=== PATIENT | male | born 1990 ===

== ENCOUNTER 2025-01-19 09:12 | Outpatient (CLI) | payer OTHER, SELFPAY ==
[2025-01-19 10:50] LABS: Chloride* 96 mmol/L (96-114); Potassium* 4.4 mmol/L (3.6-5.1); Sodium* 138 mmol/L (135-149)
[2025-01-19 10:53] LABS: Anion Gap 11 mEq/L (7-15); Blood Urea Nitrogen* 10 mg/dL (5-24); Calcium* 9.6 mg/dL (8.4-10.6); Carbon Dioxide* 31 mmol/L (20-32); Cholesterol* 283 mg/dL (90-199); Creatinine* 0.7 mg/dL (0.5-1.5); Estimated Glomerular Filt Rate 122 ml/min; Glucose* 90 mg/dL (60-115)
[2025-01-19 10:54] LABS: HDL Cholesterol* 26 mg/dL (>=40)
[2025-01-19 11:04] LABS: Triglycerides* 580 mg/dL (40-149)
[2025-01-19 11:35] LABS: HIV 1/2/P24 Combo Screen* Negative (Negative)
[2025-01-19 11:42] LABS: Hepatitis C Virus Antibody* Negative (Negative)
== END 2025-01-19 09:13 | disposition home or self-care (01) ==
LOC: LAB 09:14
PROVIDERS: PCP Family Medicine; Visit Provider Family Medicine
DX: Z11.4 Encounter for screening for human immunodeficiency virus [HIV] (principal)
CPT/HCPCS: 36415; 80048; 80061; 86703; 86803

== ENCOUNTER 2025-03-25 05:24 | Outpatient (CLI) | payer MEDICAID, SELFPAY | END 2025-03-25 05:25 | disposition home or self-care (01) | LOC: AMB 04-05 10:01 | PROVIDERS: PCP Family Medicine; Visit Provider Family Medicine | DX: R44.0 Auditory hallucinations (principal); R44.1 Visual hallucinations | CPT/HCPCS: A0425; A0429 ==

== ENCOUNTER 2025-03-25 06:33 | Emergency (ER) | payer MEDICAID, SELFPAY ==
--- OUTSIDE RECORDS SUMMARY | 2025-03-25 06:37 | XMS_ITS | Clinical Summary ---
Author Organization [facility] Address [address] [place] [id number] Care Team Providers Care Metalsmith Apprentice Name Role Phone Art Estrada MD Primary Care Provider Allergies No known active allergies Medications lidocaine-pril ocaine 2.5%-2.5% creamIndicatio ns:Anxiety Apply quarter size dollop on potential venipuncture sites 1 hour before visit under Tegaderm or similar occlusive dressing. 30 g 01/12/20 Active medication order composerIndica tions:Anxiety CBD 3 mg orally every evening. 01/12/20 Active medication order composerIndica tions:Anxiety ORCHEX 1 tablet/capsule p.o. daily 01/12/20 Active Certavite-Anti oxidant 18-400 mg-mcg tabIndications :Body nutrition deficit Take 1 Tablet by mouth once daily. 30 Tablet 01/13/20 25 Active cholecalcifero l (VITAMIN D3) 1,000 unit tabletIndicati ons:Body nutrition deficit Take 1 Tablet (1,000 units) by mouth once daily. 30 Tablet 01/13/20 25 Active escitalopram oxalate (LEXAPRO) 20 mg tabletIndicati ons:Anxiety disorder, unspecified type Take 1 Tablet (20 mg) by mouth once daily. 30 Tablet 01/13/20 25 Active Vitamin C 500 mg tabletIndicati ons:Body nutrition deficit Take 2 Tablets (1,000 mg) by mouth once daily. 30 Tablet 01/13/20 25 Active Dgubs-1-JJT-EP A-Fish Oil 1,000 (120-180) mg capIndications :Body nutrition deficit Take 1 Capsule (1,000 mg) by mouth once daily. 30 Capsule 11 01/13/20 Active medication order composerIndica tions:Upper respiratory tract infection, unspecified type Airborne; take per package labeling within 24 hours of cold symptoms for 7 days. 02/11/20 Active carbamide peroxide (Ear Wax Removal Drops) 6.5 % otic solutionIndica tions:Cerumino sis, bilateral 5 drops both ears daily for one week per month and as needed for cerumenosis. 30 mL 11 02/11/20 Active LORazepam (ATIVAN) 0.5 mg tabIndications :Anxiety TAKE 1 TABLET BY MOUTH 1 HOUR PRIOR TO APPOINTMENT DIRECTED;MAY REPEAT DOSE AFTER 30 MINUTES IF NECESSARY 2 Tablet 4 03/13/20 Active LORazepam (ATIVAN) 0.5 mg tabIndications :Anxiety 1 tablet orally 1 hour before appointment, to be repeated after 30 minutes if necessary. 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 [facility]ropractor. Skin picking habit Overview (01/11/2025): Picks thumb with index finger when anxious Sleep disturbance Encounters Date Type Department Care Team Description 03/24/2025 Travel 03/13/2025 Refill [facility] [address] [place] [address] Art Estrada MD Refill Request (Lorazepam) 03/10/2025 2:30 PM PLANT MANAGER Office Visit [facility] [address] [place] [address] Art Estrada MD Concerns (Hallucinations, increase in behaviors ) 03/10/2025 Telephone [facility] [address] [place] [address] Art Estrada MD Follow Up 03/10/2025 Travel 03/07/2025 Travel 03/06/2025 Telephone [facility] [address] [place] [address] Art Estrada MD Follow Up (Increased behavior) 02/23/2025 Telephone [facility] [address] [place] [address] Art Estrada MD Error-please disregard 02/10/2025 Telephone [facility] [address] [place] [address] Art Estrada MD Medication Management 01/26/2025 Orders Only [facility] Scanner 1 scan: (1-Ord) [facility] LAB RESULTS, 01/26/2025 01/26/2025 Orders Only [facility] [address] [place] [address] Art Estrada MD <No scans attached> 01/20/2025 Telephone [facility] [address] [place] [address] Art Estrada MD Results 01/19/2025 Orders Only [facility] Scanner 1 scan: (1-Ord) [facility], LAB RESULTS, 01/19/2025 01/19/2025 Orders Only [facility] Scanner 1 scan: (1-Ord) [facility], MULT[facility]LE LAB RESULTS , 01/19/2025 01/18/2025 Telephone [facility] [address] [place] [address] Art Estrada MD Form 01/12/2025 Refill [facility] [address] [place] [address] Art Estrada MD Refill Request 01/12/2025 Refill [facility] [address] [place] [address] Art Estrada MD Refill Request 01/11/2025 2:55 PM CDT Office Visit [facility] [address] [place] [address] Art Estrada MD [facility] (Moved to [facility] on 01/10/2025) 01/11/2025 Travel from Last 3 Months Immunizations Immunization Administration Dates Next Due DTP 1988,1988,1988 HIB PRP-T (ActHIB,Hiberix) 09/09/1989 Hepatitis B (Peds) 11/25/2000,06/26/2000, 001 Influenza, IIV3 (Age 6-35 mos) 02/05/2012,2010 Influenza, IIV4 02/01/2020, 9,01/28/2018,01/27,02/07/2015,02/03/2014,03/01/2013 MMR 04/22/2000,09/09/1989 Meningococcal Vaccine (Menomune) 10/24/2004 Oral Polio Vaccine 1988,1988 Pneumococcal Poly,23-Valent (Pneumovax) 06/21/2008 Td (Age >=7 Years) 04/22/2000 Tdap 06/10/2018 Family History Medical History Relation Name Comments Cancer-colon Maternal Grandmother Crohn's disease Maternal Grandmother Cancer-colon Maternal Uncle Ulcerative colitis Maternal Uncle Relation Name Status Comments Maternal Grandmother Maternal Uncle Alive Social History Tobacco Use Types Packs/Day Years Used Date Smoking Tobacco: Never Smokeless Tobacco: Never Tobacco Cessation:Counseling Given: No Alcohol Use Answer Date Recorded How often do you have a drink containing alcohol ? 0 03/10/2025 Average Number of Drinks Not on file 025 Frequency of Binge Drinking Not on file 02/19 Sex and Gender Information Value Date Recorded Sex Assigned at Not on file Legal Sex Male 7:21 PM CDT Gender Identity Not on file Sexual Orientation Not on file Last Filed Vital Signs Vital Sign Reading Time Taken Comments Blood Pressure 103/69 03/10/2025 2:33 PM PLANT MANAGER Pulse 92 03/10/2025 2:33 PM PLANT MANAGER Temperature - - Respiratory Rate - - Oxygen Saturation 98% 03/10/2025 2:33 PM PLANT MANAGER Inhaled Oxygen Concentration - - Weight 78 kg (172 lb) 03/10/2025 2:33 PM PLANT MANAGER Height 165.1 cm (5' 5) 01/11/2025 2:57 PM CDT Body Mass Index 28.62 01/11/2025 2:57 PM CDT Plan of Treatment Upcoming Encounters Date Type Department Care Team (Late st Contact Info) Description 03/29/2025 3:00 PM PLANT MANAGER Office Visit [facility] [address] [facility] [place] [phone] Stephanie Apodaca PA [address] [place] [address] 01/12/2026 2:30 PM CDT Office Visit [facility] [address] [place] [address] Art Estrada MD [address] [place] [address] Health Maintenance Due Date Last Done Comments Depression screening for age 12+ 2000 HIV for age 15-65 2003 Hepatitis C screening for age 18-79 2006 HPV series for age 9-45 (1 - 3-dose SCDM series) 2015 Lipids for age 35-44 2023 COVID-19 vaccine series ( season) 2024 04/30/2021 Influenza Vaccine (#1) 2024 , 02/08/2019, 01/28/2018, Additional history exists BMI (ht and wt on same day) for age 18+ 01/11/2026 01/11/2025 Tetanus booster 06/10/2028 06/10/2018, 04/22/2000 RSV vaccine for adults or (1 - 1-dose 75+ series) 2063 Hepatitis B series for 19+ Completed 11/25, 06/26/2000, 04/22/2000 Pneumococcal series for age 6-49 Aged Out 06/21/2008 No longer eligible based on patient's age to complete this topic Procedures Procedure Name Priority Date/Time Associated Diagnosis Comments SCAN-LABORATORY REPORT 01/26/2025 12:00 AM CDT SCAN-LABORATORY REPORT 01/19/2025 12:00 AM CDT SCAN-LABORATORY REPORT 01/19/2025 12:00 AM CDT from Last 3 Months Results * SCAN-LABORATORY REPORT (01/26/2025 12:00 AM CDT) Only the most recent of3 resultswithin the time period is included. us Scanner OTHER Final Result from Last 3 Months Insurance MEDICAID Advance Directives Documents on File Type Date Recorded Patient Oxygen Equipment Technician Expl anation POLST 01/17/2025 Care Teams Metalsmith Apprentice Relationship Specialty Start Date End Date Art Estrada MD [address] [place] [address] PCP - General Family Practice 01/11/25
--- NOTE | 2025-03-25 06:40 | ED_ITS ---
HPI - General Adult General Time Seen by Provider: 06:40 <Kim Rachel MD - Last Filed: 03/25/25 07:34> Date Seen: 03/25/25 <Kim Rachel MD - Last Filed: 03/25/25 07:34> Chief complaint: Altered Mental Status <Kim Rachel MD - Last Filed: 03/25/25 07:34> Stated complaint: hallucinations <Kim Rachel MD - Last Filed: 03/25/25 07:34> Time Seen by Provider: 03/25/25 06:40 <Kim Rachel MD - Last Filed: 03/25/25 07:34> Source: patient, EMS and RN notes reviewed <Kim Rachel MD - Last Filed: 03/25/25 07:34> Mode of arrival: EMS <Kim Rachel MD - Last Filed: 03/25/25 07:34> Limitations: no limitations <Kim Rachel MD - Last Filed: 03/25/25 07:34> History of Present Illness HPI narrative: Gilbert is a 34-year-old autistic gentleman with reported schizophrenia as well brought in from his senior living after he was hearing voices overnight and then destroyed his room. The facility is [facility] and they did not feel comfortable having him stay there. EMS and police were able to talk him down. On arrival here, Gilbert is repetitively stating that he does not want shots, no surgery. We reviewed with him that we do not have any intent on that at this point. He is reported to not read. He was recently started on risperidone all. He is unable to tell me specifics about what the voices were saying, he states he does not hear them now. His chart lists autism but I do not see a diagnosis of schizophrenia in there. His active medications listed are acetaminophen, artificial tears, CBD, p.r.n. cough medicine, Vanicream lotion, vitamin-C, vitamin D3. His chart lists history of tinea corporis, anxiety disorder, autistic disorder. I do not see a risperidone all order in this chart but EMS was quite definite that this had been started recently. EMS did attempt to contact POA and they got no answer. Staff did not want Gilbert left with them, thought he would escalate again once police and EMS left. EMS are not necessarily aware of what his auditory hallucinations were. They did note that he was staring at the ceiling at times. <Kim Rachel MD - Last Filed: 03/25/25 07:34> Related Data Home medications: Previous Rx's ?Medication ?Instructions ?Recorded olanzapine 10 mg tablet 5 mg (1/2 x 10 mg) PO DAILY PRN 03/25/25 agitation #2 tabs olanzapine 5 mg tablet 5 mg PO DAILY PRN #20 tabs 1 05/26/24 <Kim Rachel MD - Last Filed: 03/25/25 07:34> Allergies/adverse reactions: Allergies Allergy/AdvReac Type Severity Reaction Status Date / Time No Known Drug Allergies Allergy Verified 03/25/25 06:46 <Kim Rachel MD - Last Filed: 03/25/25 07:34> Review of Systems Status of ROS: Reports: 6 or more systems reviewed and unremarkable except as noted in History and below <Kim Rachel MD - Last Filed: 03/25/25 07:34> Narrative: Gilbert denies any injuries, denies hearing any voices, denies seeing anything at this time. <Kim Rachel MD - Last Filed: 03/25/25 07:34> [facility] Medical History: Medical History (Updated 03/25/25 @ 06:53 by Kim Rachel MD) Autism ?F84.0 - Autistic disorder (ICD-10) <Kim Rachel MD - Last Filed: 03/25/25 07:34> Social History: Social History Smoking Status: Unknown if ever smoked <Kim Rachel MD - Last Filed: 03/25/25 07:34> Exam Const: Vital Signs, click to edit/add: Vital Signs - 24 hr 03/25/25 06:41 Temperature 97.5 F L Pulse Rate [Pulse Oximeter] 107 H Respiratory Rate 18 Blood Pressure [Ri ght Upper Arm] 118/83 Pulse Oximetry 98 Oxygen Delivery Me thod Room Air Gilbert comes in on the ER gurney, he is alert, interactive but seems anxious and fearful. He is very pleasant with us. He is approach carefully with explanations on what we are doing, talking calmly with him. This approach seems to go very well for him, is seeming to seek comfort with us. He is wearing glasses, sclera clear, face atraumatic. Neck is supple, no masses or adenopathy. Lungs are clear come good air entry, no wheezing or crackles, no tachypnea, no accessory muscle use. CV regular rate in rhythm, no murmur, normal S1-S2. Abdomen is soft, nontender, nondistended, no organomegaly. He is in a T-shirt and shorts for his pajamas, no visible trauma noted of his arms or legs. He was able to get up off the ER gurney and transfer and walk over to the ED bed on his own. <Kim Rachel MD - Last Filed: 03/25/25 07:34> Vital Signs, click to edit/add: Vital Signs - 24 hr 03/25/25 06:41 Temperature 97.5 F L Pulse Rate [Pulse Oximeter] 107 H Respiratory Rate 18 Blood Pressure [Ri t Upper Arm] 118/83 Pulse Oximetry 98 Oxygen Delivery Me thod Room Air <Estuardo Herrera DO - Last Filed: 03/25/25 09:25> Documenting provider has reviewed patient's vital signs: yes <Kim Rachel MD - Last Filed: 03/25/25 07:34> Course Course ED Course: I am going to give patient oral Zyprexa 5 mg, can re-dose if necessary. Do feel that preemptive treatment is going to be best in this situation. We will see if we can find more records, we will continue to try to contact his POA. He is hemodynamically stable, afebrile. He does not want shots, needles. I think trying to get more history from his POA before doing too many interventions is necessary. If we do need blood work later, we can do things like placed EMLA cream a potentially have his POA here to help work through the process. It is unclear what may happen here, we may need to clarify whether not he has been diagnosed with schizophrenia, see if he actually is on risperidone as I do not see it listed in his chart. Unclear what his disposition ultimately will be a this time. <Kim Rachel MD - Last Filed: 03/25/25 07:34> Reevaluation(s) Time of Reevaluation #1: 07:13 <Kim Rachel MD - Last Filed: 03/25/25 07:34> Reevaluation #1: Did speak with Gilbert parents. They will make their way appear but live in our way. Gilbert did see Psychiatry, got started on risperidone all, believe 1st dose was morning. He saw psychiatry through [facility] in [place]. <Kim Rachel MD - Last Filed: 03/25/25 07:34> Vital Signs Vital signs: Initial Vital Signs Temperature 97.5 F L 03/25/25 06:41 Temperature Source Temporal Artery Scan 03/25/25 06:41 Pulse Rate 107 H 03/25/25 06:41 Respiratory Rate 18 03/25/25 06:41 Blood Pressure 118/83 03/25/25 06:41 Blood Pressure Mean 94 03/25/25 06:41 Blood Pressure Position Sitting 03/25/25 06:41 Pulse Oximetry 98 03/25/25 06:41 Oxygen Delivery Method Room Air 03/25/25 06:41 Vital Signs Temperature 97.5 F L 03/25/25 06:41 Pulse Rate 107 H 03/25/25 06:41 Respiratory Rate 18 03/25/25 06:41 Blood Pressure 118/83 03/25/25 06:41 Pulse Oximetry 98 03/25/25 06:41 Oxygen Delivery Method Room Air 03/25/25 06:41 Temperature 97.5 F L 03/25/25 06:41 Pulse Rate 107 H 03/25/25 06:41 Respiratory Rate 18 03/25/25 06:41 Blood Pressure 118/83 03/25/25 06:41 Pulse Oximetry 98 03/25/25 06:41 Oxygen Delivery Method Room Air 03/25/25 06:41 <Kim Rachel MD - Last Filed: 03/25/25 07:34> Initial Vital Signs Temperature 97.5 F L 03/25/25 06:41 Temperature Source Temporal Artery Scan 03/25/25 06:41 Pulse Rate 107 H 03/25/25 06:41 Respiratory Rate 18 03/25/25 06:41 Blood Pressure 118/83 03/25/25 06:41 Blood Pressure Mean 94 03/25/25 06:41 Blood Pressure Position Sitting 03/25/25 06:41 Pulse Oximetry 98 03/25/25 06:41 Oxygen Delivery Method Room Air 03/25/25 06:41 Vital Signs Temperature 97.5 F L 03/25/25 06:41 Pulse Rate 107 H 03/25/25 06:41 Respiratory Rate 18 03/25/25 06:41 Blood Pressure 118/83 03/25/25 06:41 Pulse Oximetry 98 03/25/25 06:41 Oxygen Delivery Method Room Air 03/25/25 06:41 Temperature 97.5 F L 03/25/25 06:41 Pulse Rate 107 H 03/25/25 06:41 Respiratory Rate 18 03/25/25 06:41 Blood Pressure 118/83 03/25/25 06:41 Pulse Oximetry 98 03/25/25 06:41 Oxygen Delivery Method Room Air 03/25/25 06:41 <Estuardo Herrera DO - Last Filed: 03/25/25 09:25> Medications Administered Medications: Discontinued Medications Generic Name Dose Route Start Last Admin Trade Name Freq PRN Reason Stop Dose Admin Olanzapine 5 mg 03/25/25 06:45 03/25/25 06:52 Olanzapine 5 Mg Tab.Rapdis PO 03/25/25 06:46 5 mg ONCE ONE Administration <Kim Rachel MD - Last Filed: 03/25/25 07:34> Discontinued Medications Generic Name Dose Route Start Last Admin Trade Name Freq PRN Reason Stop Dose Admin Olanzapine 5 mg 03/25/25 06:45 03/25/25 06:52 Olanzapine 5 Mg Tab.Rapdis PO 03/25/25 06:46 5 mg ONCE ONE Administration <Estuardo Herrera DO - Last Filed: 03/25/25 09:25> Medical Decision Making MDM Narrative Medical decision making narrative: Patient was signed out to me at the start of my shift pending final disposition. I was able speak to the nurse supervisor abattoir at [facility] who states he can be sent back to them. She would like a p.r.n. olanzapine a possible. This will be described. His parents did comment stated they want to take him home for few days. This is reasonable and they are the huang of criminal attorney. Will give them a short course of p.r.n. olanzapine to use as needed. He will be discharged. <Estuardo Herrera DO - Last Filed: 03/25/25 09:25> Medical Records Medical records reviewed: Yes I reviewed the patient's medical records <Kim Rachel MD - Last Filed: 03/25/25 07:34> Medical records narrative: In review of [facility] notes, patient's medication reconciliation absolutely does not match what is in his chart. He has Lexapro listed, was increased to 20 mg on March 24. He does get EMLA cream prior to the vena puncture. He also gets Ativan 0.5 mg prior to appointments if needed. He is getting CBD 3 mg in the evening. He is listed as having trisomy 18, 9p monosomy syndrome. He has had bilateral inguinal hernia repair, multiple strabismus surgeries, history of tracheoesophageal fistula repair. He was in the office with Dr. Estrada on 03/10/2025 with caregiver from [facility]. He moved into [facility] in January 10. He was noted to have increase in behaviors in early January. There were noting him to be talking to someone or listening to someone. Other times he would be seeming to be lashing out as if trying to fend off someone he was listening to. His mom noted that at times his eyes would be 1 quintero with a dysconjugate gaze when he is talking, the right I would maybe seem to wander laboratory early. He had had a history of numerous strabismus surgeries as a young child. He is seemed more withdrawn at times per Mom. There was question of some type of behavior that was consider potentially seizure but not thought to be so by the nurse at [facility]. They plan to do MR imaging of the brain and Neurology consult. He had consultation with Psychiatry recently, do not have these notes. There was concerned that his behavioral change may be a function of a dramatic change in his living environment. His current facility he had been at for 15 years before moving to [facility] and December. He is getting general anesthesia with his MR imaging, is not able to be compliant with out this. I do not know where this is scheduled or when it is actually happening but see it in the note from Dr. Estrada. CLARIFICATION: His current med rec does not have the risperidone all but does have the Lexapro 20 mg, the p.r.n. Ativan. Nursing staff is going to call [facility] to make sure that he has been getting this. <Kim Rachel MD - Last Filed: 03/25/25 07:34> Discharge Plan Discharge Clinical Impression: Auditory hallucinations <Kim Rachel MD - Last Filed: 03/25/25 07:34> Patient Disposition: Home w/ Parent or Adult <Kim Rachel MD - Last Filed: 03/25/25 07:34> Condition: Improved <Kim Rachel MD - Last Filed: 03/25/25 07:34> Instructions: Hallucinations (ED) <Kim Rachel MD - Last Filed: 03/25/25 07:34> Additional Instructions: Continue take his home medications as prescribed. Use the 5 mg olanzapine once a day as needed. Return to emergency department for new or worsening symptoms. <Kim Rachel MD - Last Filed: 03/25/25 07:34> Prescriptions: New olanzapine 5 mg tablet 5 mg PO DAILY PRNQty: 20 0RF olanzapine 10 mg tablet 5 mg PO DAILY PRN (Reason: agitation) Qty: 2 0RF Rx Instructions: Cut the pills in half and give once a day as needed for agitation. <Kim Rachel MD - Last Filed: 03/25/25 07:34> Follow Up/Referrals: Art Estrada MD [Primary Care Provider, Family Practice] <Kim Rachel MD - Last Filed: 03/25/25 07:34> Stand Alone Forms: [employer] Info Instructions <Kim Rachel MD - Last Filed: 03/25/25 07:34>
[2025-03-25 06:41] VITALS: BP 118/83; PULSE 107; RESP 18; TEMP 36.4; O2SAT 98
== END 2025-03-25 09:36 | disposition home or self-care (01) ==
PROVIDERS: Emergency Provider Student in an Organized Health Care Education/Training Program; PCP Family Medicine
DX: R44.0 Auditory hallucinations (principal)
CPT/HCPCS: 99284; A9270